=== PATIENT | male | born 1985 | race Caucasian/White ===

== ENCOUNTER 2019-04-03 14:08 | Emergency (ER) | payer OTHER ==
[2019-04-03 14:19] VITALS: BMI 28.0
[2019-04-03] MEDS ORDERED: ACETAMINOPHEN 325 MG TABLET (FP) PO ONE (14:47)
[2019-04-03] MEDS ORDERED: ACETAMINOPHEN 325 MG TABLET (FP) ONE (14:52)
--- NOTE | 2019-04-03 14:57 | PDOC ---
*Physical Exam - Vital Signs Last Vital Signs Temp Pulse Resp BP Pulse Ox 102.7 F H 123 H 18 128/77 97 04/03/19 14:15 04/03/19 14:15 04/03/19 14:15 04/03/19 14:15 04/03/19 14:15 Medical Decision Making - Medical Decision Making 04/03/19 14:57 Pt seen by Midlevel Provider under my direct supervision I was available for consultation Ancillary studies reviewed Laboratory Tests 04/03/19 14:52 Influenza A (Rapid) Negative Influenza B (Rapid) Negative CXR: no acute infiltrates I agree with plan as outlined by Midlevel Provider 04/03/19 15:17 Discharge - Follow up/Referral Referrals: Rylan Armenta MD [Primary Care Provider] - - Patient Discharge Instructions - Post Discharge Activity
--- NOTE | 2019-04-03 15:46 | PDOC ---
History of Present Illness - General Chief Complaint: Respiratory Stated Complaint: COUGH/POSSIBLE FEVER Time Seen by Provider: 04/03/19 14:42 History Source: Patient Exam Limitations: No Limitations Past History - Past Medical History Allergies/Adverse Reactions: Allergies Allergy/AdvReac Type Severity Reaction Status Date / Time No Known Allergies Allergy Verified 04/03/19 14:15 Home Medications: Ambulatory Orders Ibuprofen [Motrin -] 600 mg PO TID PRN 04/03/19 Lamivudine [Lamivudine Hbv] 100 mg PO DAILY 04/03/19 Tenofovir Disoproxil Fumarate [Viread] mg PO DAILY 04/03/19 Asthma: Yes COPD: No Other medical history: on antivirals - Immunization History Td Vaccination: (unknown) Immunization Up to Date: Yes - Psycho Social/Smoking Cessation Hx Smoking Status: Yes Smoking History: Current every day smoker Years of Tobacco Use: 10 Have you smoked in the past 12 months: No Number of Cigarettes Smoked Daily: 10 Information on smoking cessation initiated: No Hx Alcohol Use: Yes (daily) Drug/Substance Use Hx: No Substance Use Type: None *Physical Exam - Vital Signs Last Vital Signs Temp Pulse Resp BP Pulse Ox 102.7 F H 123 H 18 128/77 97 04/03/19 14:15 04/03/19 14:15 04/03/19 14:15 04/03/19 14:15 04/03/19 14:15 - Physical Exam General Appearance: No: Apparent Distress HEENT: positive: Normal Voice. negative: Muffled/Hoarse voice, Pharyngeal Erythema, Tonsillar Exudate, Tonsillar Erythema, Nasal Congestion, Rhinorrhea, Sinus Tenderness Respiratory/Chest: positive: Lungs Clear, Normal Breath Sounds. negative: Respiratory Distress Cardiovascular: positive: Tachycardia. negative: Murmur Gastrointestinal/Abdominal: positive: Normal Bowel Sounds, Soft. negative: Tender, Distended, Guarding, Rebound Neurologic: positive: Alert, Normal Mood/Affect ED Treatment Course - RADIOLOGY Radiology Studies Ordered: Category Date Time Status CHEST PA & LAT [RAD] Stat Radiology 04/03/19 14:47 Completed - Medications Given in the ED: ED Medications Discontinued Medications Generic Name Dose Route Start Last Admin Trade Name Freq PRN Reason Stop Dose Admin Acetaminophen 975 mg 04/03/19 14:47 04/03/19 15:19 Tylenol - PO 04/03/19 14:48 975 mg ONCE ONE Administration Medical Decision Making - Medical Decision Making 34 yo M with hx of hep B presents with fever x 3 days along with mild dry cough. Took Motrin at 2 PM. Mentions came from [facility] 03/23. Denies rhinorrhea, congestion, ear pain, throat pain, rash, sob, cp, abd pain, n/v/d, urinary symptoms. CXR negative flu negative Given Tylenol with repeat temp of 99.8 and HR 107 Patient appears well; likely viral URI 04/03/19 15:42 Discharge - Discharge Information Problems reviewed: Yes Clinical Impression/Diagnosis: Viral URI Condition: Stable Disposition: HOME - Admission No - Additional Discharge Information Prescription Drug Monitoring Program (I-STOP) results: I-STOP not reviewed - Follow up/Referral Referrals: Rylan Armenta MD [Primary Care Provider] - 2 Days - Patient Discharge Instructions Patient Printed Discharge Instructions: DI for Viral Upper Respiratory Infection -- Adult Additional Instructions: Thank you for choosing [facility]. It was a pleasure taking care of you. Your chest xray shows no sign of pneumonia Your flu was negative Alternate between Tylenol and Motrin for fever Recommend rest Stay hydrated - at least 2-3 L of water daily Follow-up with your doctor in 2 days Return to the Emergency Department if your symptoms worsen or persist or have other concerning symptoms. - Post Discharge Activity
[2019-04-03 17:34] VITALS: BP 128/75; PULSE 107; TEMP 99.8
== END 2019-04-03 17:34 | disposition home or self-care (01) ==
LOC: JER 14:08
DX: J06.9 Acute upper respiratory infection, unspecified (principal); B97.89 Other viral agents as the cause of diseases classified elsewhere; B19.10 Unspecified viral hepatitis B without hepatic coma
CPT/HCPCS: 71046-TC-FY; 87804; 99281-25